=== PATIENT | female | born 1975 | race Caucasian/White ===

== ENCOUNTER → 2016-09-02 | Outpatient (CLI) | payer MEDICAID ==
--- NOTE | 2016-09-02 08:51 | WWHP ---
DATE OF SERVICE: 09/02/2016 CHIEF COMPLAINT: The patient is here for her routine gynecologic exam and mammogram. HPI: This is a 40-year-old, G3, P3 with an LMP of 08/13/2016. The patient's is status post vasectomy. She is without gynecologic complaints. Past medical history is unremarkable. MEDICATIONS: None. ALLERGIES: No known drug allergies. 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 SOCIAL HISTORY: She denies tobacco and drug use and has 4 to 5 alcoholic drinks per month. 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 REVIEW OF SYSTEMS: Weight has been stable. She denies respiratory, cardiac, or GI problems. PHYSICAL EXAM: Blood pressure 122/89. Height 5 feet 3 inches. Weight 136 pounds. Temperature 98.2, pulse 98. This is a well-developed, well-nourished white female who is alert and oriented x3 in no acute distress. HEENT is within normal limits. NECK: Supple without mass or thyromegaly. CHEST AND LUNGS: Clear to auscultation. HEART: Regular rate and rhythm. Breasts are without mass or discharge. Axillary exam is negative for adenopathy. BACK: Negative for CVA tenderness. ABDOMEN: Soft, nontender, without palpable masses. PELVIC EXAM: Normal external genitalia. Cervix and vagina appear normal. There is no evidence of prolapse. The uterus is mid to anterior, nongravid size and nontender. There are no palpable adnexal masses or tenderness. Rectal exam is negative for mass or tenderness and is negative for occult blood. EXTREMITIES: Nontender. IMPRESSION: A gynecologically healthy 40-year-old female, whose is status post vasectomy. PLAN: 1. Pap smear was performed. 2. Self breast examination was discussed. 3. Mammogram will be done today. 4. Osteoporosis prevention was discussed. 5. She will return in one year.
--- NOTE | 2016-09-03 08:09 | MM ---
Reason for exam: screening (asymptomatic). Last mammogram was performed 1 year ago. Physical Findings: A clinical breast exam by your physician is recommended on an annual basis and results should be correlated with mammographic findings. MG 3D Screening Mammo W/Cad Bilateral CC and MLO view(s) were taken. Prior study comparison: August 27, 2015, bilateral MG 3d diag mammo w/cad RADHA. November 27, 2014, bilateral MG diagnostic mammo w CAD RADHA. May 23, 2014, bilateral MG work up mamm w CAD BILAT. The breast tissue is heterogeneously dense. This may lower the sensitivity of mammography. Finding: There are typically benign round calcifications in both breasts. Asymmetric breast tissue in the left posterior position, stable. There is no discrete abnormality. ASSESSMENT: Benign, BI-RAD 2 RECOMMENDATION: Routine screening mammogram of both breasts in 1 year.
== END ==
LOC: WWCWWP 07:55
PROVIDERS: ATTEND Obstetrics & Gynecology
DX: Z12.31 Encounter for screening mammogram for malignant neoplasm of breast (principal)
CPT/HCPCS: 77063; G0202

== ENCOUNTER → 2016-11-13 | Outpatient (CLI) | payer MEDICAID ==
--- NOTE | 2016-11-13 15:07 | XR ---
EXAMINATION TYPE: XR thoracic spine 2V DATE OF EXAM: 11/13/2016 COMPARISON: NONE HISTORY: Upper back pain Alignment is anatomic. There is no compression deformities. Vertebral body height and disc interspa anival are maintained. Slight curvature of the spine. Hypertrophic spur near the cervical thoracic junct ion. IMPRESSION: 1. No acute abnormality. Slight curvature of the spine. If symptoms persist consider MRI.
== END ==
LOC: RADXRMAIN 14:52
PROVIDERS: ATTEND Family Medicine
DX: M43.9 Deforming dorsopathy, unspecified (principal)
CPT/HCPCS: 72070

== ENCOUNTER → 2017-10-20 | Outpatient (CLI) | payer BC ==
[2017-10-20 08:03] VITALS: BP 120/88; PULSE 79; RESP 12; TEMP 98.1; BMI 23.7
--- NOTE | 2017-10-20 08:35 | P.HPOB ---
History of Present Illness H&P Date: 10/20/17 Chief Complaint: The patient is here for her routine gynecologic exam and mammogram. This is a 42-year-old G3 PIII with an LMP of 09/30/2017. Her status post vasectomy. The patient is without gynecologic complaints. Menses are regular every month. Review of Systems Weight has been stable. She denies respiratory, cardiac, or G.I. problems. 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 She has had 3 vaginal deliveries. 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 - Past Family History Father Family Medical History: Cancer (Prostate and renal) Medications and Allergies Home Medications Medication Instructions Recorded Confirmed Type No Known Home Medications [No 10/20/17 10/20/17 History Known Home Medications] Allergies Allergy/AdvReac Type Severity Reaction Status Date / Time No Known Allergies Allergy Verified 05/23/14 08:44 Exam - Vital Signs Vital signs: Vital Signs Temp Pulse Resp BP 10/20/17 07:55 98.1 F 79 12 120/88 Intake and Output 10/19/17 10/20/17 10/20/17 22:59 06:59 14:59 Other: Weight 60.781 kg Height 5'3", BMI 23.7. This is a well-developed well-nourished white female who is alert and oriented times 3 in no acute distress. HEENT: Within normal limits. NECK: Supple without mass or thyromegaly. CHEST AND LUNGS: Clear to auscultation. HEART: Regular rate and rhythm. BREASTS: Are without mass or discharge. AXILLARY EXAM: Negative for adenopathy. BACK: Negative for CVA tenderness. ABDOMEN: Soft, nontender, without palpable masses. PELVIC EXAM: Normal external genitalia. Cervix and vagina appear normal. There is no unusual discharge. There is no evidence of prolapse. The uterus is midposition, nongravid size and nontender. There are no palpable adnexal masses or tenderness. RECTAL EXAM: negative for mass or tenderness and is negative for occult blood. EXTREMITIES: Nontender. IMPRESSION: 1. 42-year-old female with normal gynecologic exam whose is status post vasectomy. PLAN: 1. Pap smear was deferred since she had a normal one last year. 2. Self breast awareness was discussed. 3. Screening mammogram will be done today. 4. Osteoporosis prevention was discussed. 5. She will return in one year.
--- NOTE | 2017-10-21 10:31 | MM ---
Reason for exam: screening (asymptomatic). Last mammogram was performed 1 year and 2 months ago. Physical Findings: A clinical breast exam by your physician is recommended on an annual basis and results should be correlated with mammographic findings. MG 3D Screening Mammo W/Cad Bilateral CC and MLO view(s) were taken. XCCL view(s) were taken of the right breast. Prior study comparison: September 02, 2016, bilateral MG 3d screening mammo w/cad. August 27, 2015, bilateral MG 3d diag mammo w/cad RADHA. The breast tissue is extremely dense which could obscure a lesion on mammography. Finding: There is a 7 mm equal density (isodense), irregular mass in the lower quadrant, posterior position of the right breast. ASSESSMENT: Incomplete: need additional imaging evaluation, BI-RAD 0 RECOMMENDATION: Special view mammogram of the right breast. If lesion persists on supplemental views, image directed ultrasound is recommended. [facility] will attempt to contact patient to return for supplemental views and ultrasound if indicated.
== END | disposition home or self-care (01) ==
LOC: WWCWWP 07:50
PROVIDERS: ATTEND Obstetrics & Gynecology
DX: Z12.31 Encounter for screening mammogram for malignant neoplasm of breast (principal)
CPT/HCPCS: 77063; 77067

== ENCOUNTER → 2017-11-01 | Outpatient (CLI) | payer BC ==
--- NOTE | 2017-11-01 08:48 | MM ---
Reason for exam: additional evaluation requested from abnormal screening. Last mammogram was performed less than 1 month ago. Physical Findings: Nurse did not find any significant physical abnormalities on exam. MG 3D Work Up W/Cad RT CC and MLO view(s) were taken of the right breast. Prior study comparison: October 20, 2017, bilateral MG 3d screening mammo w/cad. September 02, 2016, bilateral MG 3d screening mammo w/cad. There is no discrete abnormality. These results were verbally communicated with the patient and result sheet given to the patient on 11/01/17. ASSESSMENT: Incomplete: need additional imaging evaluation, BI-RAD 0 RECOMMENDATION: Ultrasound of the right breast.
--- NOTE | 2017-11-01 08:49 | USB ---
Reason for exam: additional evaluation requested from abnormal screening. US Breast Workup Limited RT Right limited breast ultrasound including focal area of concern, retroareolar and axilla demonstrates a 0.5 x 0.6 x 0.2cm oval, cystic lesion at 9 o'clock and a 0.5 x 0.4 x 0.2cm oval, cystic lesion at 10 o'clock. These results were verbally communicated with the patient and result sheet given to the patient on 11/01/17. ASSESSMENT: Benign, BI-RAD 2 RECOMMENDATION: Return to routine screening mammogram schedule for both breasts.
== END | disposition home or self-care (01) ==
LOC: RADMAMWWP 07:29
PROVIDERS: ATTEND Obstetrics & Gynecology
DX: R92.8 Other abnormal and inconclusive findings on diagnostic imaging of breast (principal)
CPT/HCPCS: 77061; 77065

== ENCOUNTER 2018-11-19 22:26 | Emergency (ER) | payer BC ==
[2018-11-19 22:50] VITALS: RESP 18
[2018-11-20] MEDS ORDERED: TOPICAL SKIN ADHESIVE 1 EACH AMP TOPICAL ONE (00:13)
--- NOTE | 2018-11-20 00:19 | ED ---
Head Injury HPI - General Chief complaint: Head Injury Stated complaint: Head injury Time Seen by Provider: 11/20/18 00:07 Source: patient Mode of arrival: ambulatory Limitations: no limitations - History of Present Illness Initial comments: 's patient is a 43-year-old woman who presents with complaint of scalp laceration. She states that she had been noticed work around the home and a landscaping brick had fallen short distance onto her head. She did not have loss of consciousness. She denies significant headache. There is some dull localized pain. She denies any neurologic symptoms. The patient states she was not concerned about the head injury but only that the small laceration to her scalp continued to bleed. She denies any other injury. No neck or back pain. No neurologic symptoms. She believes that her last tetanus shot was given between 2 and 3 years ago. Complaint: head injury -: hour(s) Location: parietal Loss of Consciousness: no Previous Trauma to this Area: No Place: home Severity: mild Quality: dull Consistency: constant Provoking factors: none known Other Injuries: laceration - Related Data Home Medications Medication Instructions Recorded Confirmed No Known Home Medications 10/20/17 10/20/17 Allergies/Adverse reactions: Allergies Allergy/AdvReac Type Severity Reaction Status Date / Time No Known Allergies Allergy Verified 11/19/18 22:50 Review of Systems ROS Statement: Those systems with pertinent positive or pertinent negative responses have been documented in the HPI. ROS Other: All systems not noted in ROS Statement are negative. Constitutional: Denies: fever, chills, weakness Eyes: Denies: eye pain, vision change ENT: Denies: ear pain, hearing loss, epistaxis Respiratory: Denies: cough, dyspnea Cardiovascular: Denies: syncope Gastrointestinal: Denies: abdominal pain, nausea, vomiting Skin: Reports: as per HPI (Laceration) Hematological/Lymphatic: Denies: easy bleeding Past Medical History Past Medical History: No Reported History Additional Past Medical History / Comment(s): She has had 3 vaginal deliveries. History of Any Multi-Drug Resistant Organisms: None Reported Past Surgical History: Orthopedic Surgery Additional Past Surgical History / Comment(s): Laparoscopic ovarian cystectomy 2003, colonoscopy 2011, Past Psychological History: No Psychological Hx Reported Smoking Status: Never smoker Past Alcohol Use History: Occasional Past Drug Use History: None Reported - Past Family History Father Family Medical History: Cancer (Prostate and renal) General Exam Limitations: no limitations General appearance: alert, in no apparent distress Head exam: Present: normocephalic, other (Parietal scalp laceration without significant swelling. There is no bony tenderness or deformity.) Eye exam: Present: normal appearance. Absent: scleral icterus, conjunctival injection Neck exam: Present: normal inspection, full ROM. Absent: tenderness Neurological exam: Present: alert, oriented X3, CN II-XII intact, normal gait Skin exam: Present: warm, dry, normal color, other (There is an approximately 3 cm laceration to the scalp.) Course Vital Signs 11/19/18 22:46 Temperature 97.9 F Pulse Rate 75 Respiratory 18 Rate Blood Pressure 134/66 O2 Sat by Pulse 100 Oximetry Procedures - Laceration Laceration #1 Consent Obtained: verbal consent Indication: laceration Site: scalp Description: linear Patient Tolerated Procedure: well, no complications Additional Comments: Wound closure with skin glue. Patient tolerated procedure well. Disposition Clinical Impression: Scalp laceration, Head injury Disposition: HOME SELF-CARE Condition: Good Instructions (If sedation given, give patient instructions): Laceration (ED), Head Injury (ED) Is patient prescribed a controlled substance at d/c from ED?: No Referrals: Varsha Espino MD [Primary Care Provider] - 1-2 days
[2018-11-20 01:09] VITALS: BP 124/83; PULSE 60; TEMP 98.1
== END 2018-11-20 01:09 | disposition home or self-care (01) ==
LOC: EC 22:26
DX: S01.01XA Laceration without foreign body of scalp, initial encounter (principal); W20.8XXA Other cause of strike by thrown, projected or falling object, initial encounter; Y93.H2 Activity, gardening and landscaping
CPT/HCPCS: 12002; 99282

== ENCOUNTER → 2018-12-06 | Outpatient (CLI) | payer BC ==
[2018-12-06 09:52] VITALS: BP 126/74; PULSE 84; RESP 16; TEMP 97.7; BMI 22.3
--- NOTE | 2018-12-06 10:41 | P.HPOB ---
History of Present Illness H&P Date: 12/06/18 Chief Complaint: The patient is here for her routine gynecologic exam and ma mmogram. This is a 43-year-old G3 PIII with an LMP of 11/07/2018. Her is status post vasectomy. She states her menstrual periods have gotten heavier. Menstrual periods are still fairly regularly every month but are now lasting about 7 days with 3 days of heavier flow. On the heavy days she has to change her protection about every hour. Occasionally she has had to use double protection because of the heavy flow. She is otherwise without complaints. Review of Systems She has lost about 7 pounds over the last year. She denies respiratory, cardiac, or G.I. problems. 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 She has had 3 vaginal deliveries. 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 - Past Family History Father Family Medical History: Cancer Additional Family Medical History / Comment(s): Prostate and renal cancer. Medications and Allergies Home Medications Medication Instructions Recorded Confirmed Type Loratadine [Claritin] 10 mg PO DAILY 12/06/18 12/06/18 History Multivitamin [Multivitamins Adult 1 each PO 12/06/18 History Gummies] Allergies Allergy/AdvReac Type Severity Reaction Status Date / Time No Known Allergies Allergy Verified 11/19/18 22:50 Exam Vital Signs Temp Pulse Resp BP Pulse Ox 12/06/18 09:47 97.7 F 84 16 126/74 100 Intake and Output 12/05/18 12/06/18 12/06/18 22:59 06:59 14:59 Other: Weight 57.153 kg Height 5'3", weight 126 pounds, BMI 22.3. This is a well-developed well-nourished white female who is alert and oriented times 3 in no acute distress. HEENT: Within normal limits. NECK: Supple without mass or thyromegaly. CHEST AND LUNGS: Clear to auscultation. HEART: Regular rate and rhythm. BREASTS: Are without mass or discharge. AXILLARY EXAM: Negative for adenopathy. BACK: Negative for CVA tenderness. ABDOMEN: Soft, nontender, without palpable masses. PELVIC EXAM: Normal external genitalia. Cervix and vagina appear normal. There is no unusual discharge. There is no evidence of prolapse. The uterus is midposition, nongravid size and nontender. There are no palpable adnexal masses or tenderness. RECTAL EXAM: negative for mass or tenderness and is negative for occult blood. EXTREMITIES: Nontender. IMPRESSION: 1. 43 year old female whose is status post vasectomy, with normal gynecologic exam. 2. Mild hypermenorrhea with no significant physical findings at this time. PLAN: 1. Pap smear was performed. 2. Self breast awareness was discussed with the patient. 3. Screening mammogram will be done today. 4. We had a long discussion regarding options for her heavier menstrual flow. We will have a trial of meclofenamate sodium 100 mg PO TID PRN for heavy menstrual flow up to 6 days per cycle. The prescription will be sent electronically to [facility] pharmacy in [place]. 5. She will keep a menstrual calendar. If her menstrual flow is worsening or not improving, she was instructed to make a follow-up appointment and we can consider referral for endometrial ablation. 6.She was advised to return in one year for her annual well woman exam and PRN.
--- NOTE | 2018-12-06 12:09 | MM ---
Reason for exam: screening (asymptomatic). Last mammogram was performed 1 year and 1 month ago. Physical Findings: A clinical breast exam by your physician is recommended on an annual basis and results should be correlated with mammographic findings. MG 3D Screening Mammo W/Cad Bilateral CC and MLO view(s) were taken. Prior study comparison: November 01, 2017, right breast MG 3d work up w/cad RT. October 20, 2017, bilateral MG 3d screening mammo w/cad. September 02, 2016, bilateral MG 3d screening mammo w/cad. The breast tissue is heterogeneously dense. This may lower the sensitivity of mammography. There are benign appearing regional, round calcifications in the right breast. Asymmetric breast tissue left posterior breast, stable. There is no discrete abnormality. ASSESSMENT: Benign, BI-RAD 2 RECOMMENDATION: Routine screening mammogram of both breasts in 1 year.
== END | disposition home or self-care (01) ==
LOC: WWCWWP 09:09
PROVIDERS: ATTEND Obstetrics & Gynecology
DX: Z12.31 Encounter for screening mammogram for malignant neoplasm of breast (principal)
CPT/HCPCS: 77063; 77067

== ENCOUNTER → 2020-02-14 | Outpatient (CLI) | payer BC ==
[2020-02-14 10:51] VITALS: BP 133/84; PULSE 93; RESP 16; TEMP 98.2
--- NOTE | 2020-02-14 11:23 | P.HPOB ---
History of Present Illness H&P Date: 02/14/20 Chief Complaint: The patient is here for her routine gynecologic exam and ma mmogram. This is a 44-year-old with an LMP of 12/24/2019. The patient's is status post vasectomy. She states she only briefly tried meclofenamate sodium for hypermenorrhea and felt that she didn't need it. Menstrual periods have been lasting about 5-6 days with 3 days of heavier flow where she has to change her protection about every 1 1/2-2 hours. After the 3 days, then periods tend to be light. She has been keeping track of her menstrual periods on a menstrual tawanna on her phone. She thinks she missed about 3 menstrual periods over the last year including this month. She denies any significant hot flashes except for a few in May 2019. She is otherwise without complaints. Review of Systems The patient has gained 7 pounds over the last year. She denies respiratory, cardiac, or G.I. problems. 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 She has had 3 vaginal deliveries. 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 - Past Family History Father Family Medical History: Cancer Additional Family Medical History / Comment(s): Prostate and renal cancer. Medications and Allergies Home Medications Medication Instructions Recorded Confirmed Type Multivitamin [Multivitamins Adult 1 each PO HS 12/06/18 02/14/20 History Gummies] Allergies Allergy/AdvReac Type Severity Reaction Status Date / Time No Known Allergies Allergy Verified 02/14/20 10:45 Exam Vital Signs Temp Pulse Resp BP Pulse Ox 02/14/20 10:46 98.2 F 93 16 133/84 100 Intake and Output 02/13/20 02/14/20 02/14/20 22:59 06:59 14:59 Other: Weight 60.328 kg Height 5 feet 2 inches, weight 133 pounds, BMI 24.3. This is a well-developed well-nourished white female who is alert and oriented times 3 in no acute distress. HEENT: Within normal limits. NECK: Supple without mass or thyromegaly. CHEST AND LUNGS: Clear to auscultation. HEART: Regular rate and rhythm. BREASTS: Are without mass or discharge. AXILLARY EXAM: Negative for adenopathy. BACK: Negative for CVA tenderness. ABDOMEN: Soft, nontender, without palpable masses. PELVIC EXAM: Normal external genitalia. Cervix and vagina appear normal. There is no unusual discharge. There is no evidence of prolapse. The uterus is midposition, nongravid size and nontender. There are no palpable adnexal masses or tenderness. RECTAL EXAM: negative for mass or tenderness and is negative for occult blood. EXTREMITIES: Nontender. IMPRESSION: 1. 44-year-old female with normal gynecologic exam whose is status post vasectomy. 2. Possible early perimenopause with occasional missed menstrual periods. 3. Mild hypermenorrhea with no significant physical findings and the patient is declining any medication or treatment for this at this time. PLAN: 1. Pap smear was deferred since she had a normal one on 12/06/2018. 2. Self breast awareness was discussed with the patient. 3. Screening mammogram will be done today. 4. We have discussed options for her mild hypermenorrhea including medication treatment as well as endometrial ablation. She will keep a menstrual calendar and call if she thinks she would like to proceed with treatment for hypermenorrhea. She will also call if she is having other menstrual problems. 5. She was advised to return in one year for her annual well woman exam and as needed.
--- NOTE | 2020-02-16 10:16 | MM ---
Reason for exam: screening (asymptomatic). Last mammogram was performed 1 year and 2 months ago. Physical Findings: A clinical breast exam by your physician is recommended on an annual basis and results should be correlated with mammographic findings. MG 3D Screening Mammo W/Cad Bilateral CC and MLO view(s) were taken. Prior study comparison: December 06, 2018, bilateral MG 3d screening mammo w/cad. November 01, 2017, right breast MG 3d work up w/cad RT. The breast tissue is heterogeneously dense. This may lower the sensitivity of mammography. Stable areas of bilateral asymmetric densities. No significant changes when compared with prior studies. ASSESSMENT: Benign, BI-RAD 2 RECOMMENDATION: Routine screening mammogram of both breasts in 1 year.
== END | disposition home or self-care (01) ==
LOC: WWCWWP 10:34
PROVIDERS: ATTEND Obstetrics & Gynecology
DX: Z12.31 Encounter for screening mammogram for malignant neoplasm of breast (principal)
CPT/HCPCS: 77063; 77067

== ENCOUNTER → 2020-12-16 | Outpatient (CLI) | payer BC ==
--- NOTE | 2020-12-17 03:59 | MR ---
EXAMINATION TYPE: MR foot RT wo/w con DATE OF EXAM: 12/16/2020 COMPARISON: None HISTORY: Right foot pain, bone lesion. Prior bunion surgery. CONTRAST: Standard multiplanar, multisequence MRI departmental protocol utilizing 6.5 mL intravenous Gadavist g adolinium contrast. Multiplanar multiecho imaging of the right foot was performed without contrast and with IV contrast. The metatarsals are intact. There is a mild hallux valgus. There is minor spurring at the first MP judith int. The toes appear intact. The tarsal bones appear intact. I see no focal bone destruction. The kota ntar fascia appears normal. Achilles tendon is intact. The medial and lateral flexor tendons of the f oot appear intact. There is a marker placed on the plantar aspect of the forefoot at the second MP judith int. There is on the T1 images low signal in the cutaneous tissues in the area of concern. This has s light increased signal on the STIR images. This measures 15 x 6 mm. IMPRESSION: Cutaneous abnormality at the plantar aspect of the second MP joint in the area of concern. This could be a bunion or Hanks neuroma. 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 No fracture seen. No si gn of inflammatory arthritis.
== END | disposition home or self-care (01) ==
LOC: RADMRIMAIN 20:19
PROVIDERS: ATTEND Podiatrist Foot & Ankle Surgery
DX: M20.11 Hallux valgus (acquired), right foot (principal)
CPT/HCPCS: 73720; A9585

== ENCOUNTER → 2021-03-11 | Outpatient (CLI) | payer BC ==
[2021-03-11 10:53] VITALS: BP 126/72; PULSE 74; RESP 12; TEMP 98.3
--- NOTE | 2021-03-11 11:30 | P.HPOB ---
History of Present Illness H&P Date: 03/11/21 Chief Complaint: The patient is here for her routine gynecologic exam and ma mmogram. This is a 45-year-old with an LMP of 02/07/2021. The patient's is status post vasectomy. Menstrual periods have been mostly about every 4-5 weeks lasting 6 or 7 days. She did go for more than 5 months between about May 2020 and October 2020 without a menstrual period. Her last 3 have been fairly normal. She has not been having much problem with very heavy flow. She denies any significant hot flashes. Review of Systems The patient has gained 6 pounds over the last year. She denies respiratory, cardiac, or G.I. problems. 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 She has had 3 vaginal deliveries. 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 - Past Family History Father Family Medical History: Cancer Additional Family Medical History / Comment(s): Prostate and renal cancer. Medications and Allergies Home Medications Medication Instructions Recorded Confirmed Type Multivitamin [Multivitamins Adult 1 each PO HS 12/06/18 03/11/21 History Gummies] Allergies Allergy/AdvReac Type Severity Reaction Status Date / Time No Known Allergies Allergy Verified 02/14/20 10:45 Exam Vital Signs Temp Pulse Resp BP Pulse Ox 03/11/21 10:43 98.3 F 74 12 126/72 98 Intake and Output 03/10/21 03/11/21 03/11/21 22:59 06:59 14:59 Other: Weight 63.049 kg Height 5 feet 3 inches, weight 139 pounds, BMI 24.6. This is a well-developed well-nourished white female who is alert and oriented times 3 in no acute distress. HEENT: Within normal limits. NECK: Supple without mass or thyromegaly. CHEST AND LUNGS: Clear to auscultation. HEART: Regular rate and rhythm. BREASTS: Are without mass or discharge. AXILLARY EXAM: Negative for adenopathy. BACK: Negative for CVA tenderness. ABDOMEN: Soft, nontender, without palpable masses. PELVIC EXAM: Normal external genitalia. Cervix and vagina appear normal. There is no unusual discharge. There is no evidence of prolapse. The uterus is midposition, nongravid size and nontender. There are no palpable adnexal masses or tenderness. RECTAL EXAM: negative for mass or tenderness and is negative for occult blood. EXTREMITIES: Nontender. IMPRESSION: 1. 45-year-old female whose is status post vasectomy, with normal gynecologic exam. 2. Some menstrual irregularity with Intermittent oligomenorrhea, possible perimenopause. PLAN: 1. Pap smear cotest was performed. 2. Self breast awareness was discussed with the patient. We have also discussed symptoms associated with inflammatory breast cancer. 3. Screening mammogram will be done today. 4. Osteoporosis prevention was discussed. I have stressed the importance of adequate calcium, vitamin D and regular exercise. Recommended amounts of calcium and vitamin D were also discussed. 5. She will continue to keep a menstrual calendar and call if menstrual problems. 6. She was advised to return in one year for her annual well woman exam.
--- NOTE | 2021-03-11 13:42 | MM ---
Reason for exam: screening (asymptomatic). Last mammogram was performed 1 year and 1 month ago. Physical Findings: A clinical breast exam by your physician is recommended on an annual basis and results should be correlated with mammographic findings. MG 3D Screening Mammo W/Cad Bilateral CC and MLO view(s) were taken. XCCL view(s) were taken of the right breast. XCCM view(s) were taken of the left breast. Prior study comparison: February 14, 2020, bilateral MG 3d screening mammo w/cad. December 06, 2018, bilateral MG 3d screening mammo w/cad. November 01, 2017, right breast MG 3d work up w/cad RT. The breast tissue is heterogeneously dense. This may lower the sensitivity of mammography. There are benign appearing round calcifications bilaterally. Asymmetric breast tissue left posterior aspect, stable. There is no discrete abnormality. ASSESSMENT: Benign, BI-RAD 2 RECOMMENDATION: Routine screening mammogram of both breasts in 1 year.
== END ==
LOC: WWCWWP 10:31
PROVIDERS: ATTEND Obstetrics & Gynecology
DX: Z12.31 Encounter for screening mammogram for malignant neoplasm of breast (principal); Z01.419 Encounter for gynecological examination (general) (routine) without abnormal findings; N91.5 Oligomenorrhea, unspecified; N92.6 Irregular menstruation, unspecified; F41.9 Anxiety disorder, unspecified
CPT/HCPCS: 77063; 77067

== ENCOUNTER → 2022-03-25 | Outpatient (CLI) | payer BC ==
[2022-03-25 09:38] VITALS: BP 122/86; PULSE 88; RESP 18; TEMP 97.8
--- NOTE | 2022-03-25 10:11 | P.HPOB ---
History of Present Illness H&P Date: 03/25/22 Chief Complaint: The patient is here for her routine gynecologic exam and ma mmogram. This is a 46-year-old with an LMP of 02/22/2022. Her is status post vasectomy. Menstrual periods continue to be somewhat irregular with cycles ranging from 3 weeks to 5 months. Over the past year she has had cycles of: 21 days, 40 days, 20 days, 153 days, 45 days, and 115 days. She also has been noticing some hot flashes. She takes an [id number] supplement called Provitalize which seems to help somewhat with her hot flashes. She states her menstrual periods are not bad. Review of Systems The patient has gained 9 pounds over the last year. She denies respiratory, cardiac, or G.I. problems. 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 She has had 3 vaginal deliveries. 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 - Past Family History Father Family Medical History: Cancer Additional Family Medical History / Comment(s): Prostate and renal cancer. Medications and Allergies Home Medications Medication Instructions Recorded Confirmed Type Multivitamin [Multivitamins Adult 1 each PO HS 12/06/18 03/25/22 History Gummies] L.acidoph,Paracasei, B.lactis 1 cap PO DAILY 03/25/22 03/25/22 History [Probiotic] Allergies Allergy/AdvReac Type Severity Reaction Status Date / Time No Known Allergies Allergy Verified 03/25/22 09:31 Exam Vital Signs Temp Pulse Resp BP Pulse Ox 03/25/22 09:32 97.8 F 88 18 122/86 100 Intake and Output 03/24/22 03/25/22 03/25/22 22:59 06:59 14:59 Other: Weight 67.132 kg Height 5 feet 3 inches, weight 148 pounds, BMI 26.2. This is a well-developed well-nourished white female who is alert and oriented times 3 in no acute distress. HEENT: Within normal limits. NECK: Supple without mass or thyromegaly. CHEST AND LUNGS: Clear to auscultation. HEART: Regular rate and rhythm. BREASTS: Are without mass or discharge. AXILLARY EXAM: Negative for adenopathy. BACK: Negative for CVA tenderness. ABDOMEN: Soft, nontender, without palpable masses. PELVIC EXAM: Normal external genitalia. Cervix and vagina appear normal. There is no unusual discharge. There is no evidence of prolapse. The uterus is midposition, nongravid size and nontender. There are no palpable adnexal masses or tenderness. RECTAL EXAM: negative for mass or tenderness and is negative for occult blood. EXTREMITIES: Nontender. IMPRESSION: 1. 46-year-old premenopausal female with normal gynecologic exam. 2. Menstrual irregularity consistent with the perimenopause with mild vasomotor symptoms. PLAN: 1. Pap smear was deferred since she had a negative Pap smear, test on 03/11/2021. 2. Self breast awareness was discussed with the patient. We have also discussed symptoms associated with inflammatory breast cancer. 3. Screening mammogram will be done today. 4. The patient will continue to keep a menstrual calendar and call if menstrual problems. Suggestions regarding her hot flashes were given. 5. Colorectal cancer screening was discussed. She will discuss the options with her PCP. 6. She has completed her Covid vaccination series, but has not received any boosters. She is aware that boosters are now available. She will consider this. 7. She was advised to return in one year for her annual well woman exam and as needed.
--- NOTE | 2022-03-26 11:36 | MM ---
Reason for Exam: Screening (asymptomatic). Last mammogram was performed 1 year(s) and 1 month(s) ago. Patient History: Menarche at age 12. First Full-Term at age 22. Patient has history of breast feeding. Last menstrual period: 02/22/2022 Risk Values: Lucinda 5 year model risk: 0.8%. NCI Lifetime model risk: 8.4%. Prior Study Comparison: 09/02/2016 Bilateral Screening Mammogram, [facility]. 10/20/2017 Bilateral Screening Mammogram, [facility]. 11/01/2017 Right Diagnostic Mammogram, [facility]. 12/06/2018 Bilateral Screening Mammogram, [facility]. 02/14/2020 Bilateral Screening Mammogram, [facility]. 03/11/2021 Bilateral Screening Mammogram, [facility]. Tissue Density: The breast tissue is heterogeneously dense. This may lower the sensitivity of mammography. Findings: Analyzed By CAD. Scattered and loosely grouped small benign appearing round calcifications bilaterally are redemonstrated. There is no suspicious new group of microcalcifications or new suspicious mass in either breast. Overall Assessment: Benign, BI-RAD 2 Management: Screening Mammogram of both breasts in 1 year. A clinical breast exam by your physician is recommended on an annual basis and results should be correlated with mammographic findings. Electronically signed and approved by: Angel Penaloza M.D.
== END ==
LOC: WWCWWP 09:09
PROVIDERS: ATTEND Obstetrics & Gynecology
DX: Z12.31 Encounter for screening mammogram for malignant neoplasm of breast (principal); E66.9 Obesity, unspecified; Z68.26 Body mass index [BMI] 26.0-26.9, adult
CPT/HCPCS: 77063; 77067

== ENCOUNTER → 2023-04-07 | Outpatient (CLI) | payer BC ==
[2023-04-07 08:14] VITALS: BP 121/82; PULSE 79; RESP 17; TEMP 97.9
--- NOTE | 2023-04-07 08:35 | P.HPOB ---
History of Present Illness H&P Date: 04/07/23 Chief Complaint: The patient is here for her routine gynecologic exam and ma mmogram. This is a 47-year-old with an LMP of 03/31/2023. The patient's is status post vasectomy. Patient continues to have irregular cycles ranging from 5 weeks to 5 months. Most menstrual periods have not been very heavy or painful. Her LMP was different in that she had 3 days of heavier flow and it was very crampy during those days. During the heavy days of her LMP, she had to change her protection up to every 45 minutes. She has had occasional hot flashes which are not very consistent. She is otherwise without gynecologic complaints. Review of Systems The patient's weight has been stable over the last year. She denies respiratory, cardiac, or G.I. problems. 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 She has had 3 vaginal deliveries. 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 - Past Family History Father Family Medical History: Cancer Additional Family Medical History / Comment(s): Prostate and renal cancer. Medications and Allergies Home Medications Medication Instructions Recorded Confirmed Type Multivitamin [Multivitamins Adult 1 each PO HS 12/06/18 04/07/23 History Gummies] Allergies Allergy/AdvReac Type Severity Reaction Status Date / Time No Known Allergies Allergy Verified 04/07/23 07:55 Exam Vital Signs Temp Pulse Resp BP Pulse Ox 04/07/23 07:56 97.9 F 79 17 121/82 99 Intake and Output 04/06/23 04/07/23 04/07/23 22:59 06:59 14:59 Other: Weight 67.132 kg Height 5 feet 3 inches, weight 148 pounds, BMI 26.2. This is a well-developed well-nourished white female who is alert and oriented times 3 in no acute distress. HEENT: Within normal limits. NECK: Supple without mass or thyromegaly. CHEST AND LUNGS: Clear to auscultation. HEART: Regular rate and rhythm. BREASTS: Are without mass or discharge. AXILLARY EXAM: Negative for adenopathy. BACK: Negative for CVA tenderness. ABDOMEN: Soft, nontender, without palpable masses. PELVIC EXAM: Normal external genitalia. Cervix and vagina appear normal. There is a small amount of old menstrual blood near the cervix consistent with her LMP. There is no unusual discharge. There is no evidence of prolapse. The uterus is midposition, nongravid size and nontender. There are no palpable adnexal masses or tenderness. RECTAL EXAM: negative for mass or tenderness and is negative for occult blood. EXTREMITIES: Nontender. IMPRESSION: 1. 47-year-old perimenopausal female whose is status post vasectomy, with normal gynecologic exam. 2. Irregular oligomenorrhea and intermittent vasomotor symptoms consistent with perimenopause. 3. Mild hypermenorrhea and dysmenorrhea with her LMP. She states her other menstrual periods have not been bad. PLAN: 1. Pap smear cotest was performed. 2. Self breast awareness was discussed with the patient. We have also discussed symptoms associated with inflammatory breast cancer. 3. Screening mammogram will be done today. 4. The patient will continue to keep a menstrual calendar on her phone. She will call if menstrual problems. 5. She can try [id number] ibuprofen or Aleve for her menstrual periods as needed. 6.Osteoporosis prevention was discussed. I have stressed the importance of adequate calcium, vitamin D and regular exercise. Recommended amounts of calcium and vitamin D were also discussed. 7. She states she plans to schedule a colonoscopy through her PCP since it is been about 11 years since her last one. 8. She was advised to return in one year for her annual well woman exam and as needed.
--- NOTE | 2023-04-08 11:08 | MM ---
Reason for Exam: Screening (asymptomatic). Last screening mammogram was performed 12 month(s) ago. Patient History: Menarche at age 12. First Full-Term at age 22. Patient has history of breast feeding. Last menstrual period: 03/31/2023 Risk Values: Lucinda 5 year model risk: 0.8%. NCI Lifetime model risk: 8.3%. Prior Study Comparison: 09/02/2016 Bilateral Screening Mammogram, [facility]. 10/20/2017 Bilateral Screening Mammogram, [facility]. 12/06/2018 Bilateral Screening Mammogram, [facility]. 02/14/2020 Bilateral Screening Mammogram, [facility]. 03/11/2021 Bilateral Screening Mammogram, [facility]. 03/25/2022 Bilateral MG 3D screening mammo w/cad, [facility]. Tissue Density: The breast tissue is heterogeneously dense. This may lower the sensitivity of mammography. Findings: Analyzed By CAD. There is no suspicious group of microcalcifications or new suspicious mass. Overall Assessment: Negative, BI-RAD 1 Management: Screening Mammogram of both breasts in [address] [facility] will attempt to contact patient to return for supplemental views and ultrasound if indicated. Patient should continue monthly self-breast exams. A clinical breast exam by your physician is recommended on an annual basis. This exam should not preclude additional follow-up of suspicious palpable abnormalities. Note on Lucinda scores and lifetime risk: 1. A Lucinda score greater than 3% is considered moderate risk. If this is the case, consider specialist referral to assess eligibility for a risk reducing agent. 2. If overall lifetime risk for the development of breast cancer is 20% or higher, the patient may qualify for future screening with alternating mammogram and breast MRI. Electronically signed and approved by: James Gustafson DO
== END ==
LOC: WWCWWP 07:48
PROVIDERS: ATTEND Obstetrics & Gynecology
DX: Z12.31 Encounter for screening mammogram for malignant neoplasm of breast (principal); N91.5 Oligomenorrhea, unspecified; N92.0 Excessive and frequent menstruation with regular cycle; N94.6 Dysmenorrhea, unspecified; Z78.0 Asymptomatic menopausal state
CPT/HCPCS: 77063; 77067

== ENCOUNTER → 2024-04-11 | Outpatient (CLI) | payer BC ==
[2024-04-11 08:05] VITALS: BP 136/86; PULSE 83; RESP 16; TEMP 98.3
--- NOTE | 2024-04-11 08:30 | P.HPOB ---
History of Present Illness H&P Date: 04/11/24 Chief Complaint: The patient is here for her routine gynecologic exam and ma mmogram. This is a 48-year-old G3, P3 with an LMP of 07/19/2023. The patient's is status post vasectomy. Menses continue to space out. She had 3 menstrual periods in 2022, in June, October, and March. In 2023 she had just 1 menstrual period in June. She does feel warm at times, but does not have very serious hot flashes. She seems less fatigued this year, but occasionally does feel like she is not as mentally sharp. She wonders if this is related to a menopausal change. She is otherwise without gynecologic complaints. Review of Systems The patient has gained 12 pounds over the last year. She denies respiratory, cardiac, or G.I. problems. 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 She has had 3 vaginal deliveries. 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 - Past Family History Father Family Medical History: Cancer Additional Family Medical History / Comment(s): Prostate and renal cancer. MDS. Medications and Allergies Home Medications Medication Instructions Recorded Confirmed Type Multivitamin [Multivitamins Adult 1 each PO HS 12/06/18 04/07/23 History Gummies] Allergies Allergy/AdvReac Type Severity Reaction Status Date / Time No Known Allergies Allergy Verified 04/11/24 08:02 Exam Vital Signs Temp Pulse Resp BP Pulse Ox 04/11/24 08:03 98.3 F 83 16 136/86 99 Intake and Output 04/10/24 04/11/24 04/11/24 22:59 06:59 14:59 Other: Weight 72.575 kg Height 5 feet 2 inches, weight 160 pounds, BMI 29.3. This is a well-developed well-nourished white female who is alert and oriented times 3 in no acute distress. HEENT: Within normal limits. NECK: Supple without mass or thyromegaly. CHEST AND LUNGS: Clear to auscultation. HEART: Regular rate and rhythm. BREASTS: Are without mass or discharge. AXILLARY EXAM: Negative for adenopathy. BACK: Negative for CVA tenderness. ABDOMEN: Soft, nontender, without palpable masses. PELVIC EXAM: Normal external genitalia. Cervix and vagina appear normal. There is no unusual discharge. There is no evidence of prolapse. The uterus is midposition, multiparous, nongravid size and nontender. There are no palpable adnexal masses or tenderness. RECTAL EXAM: negative for mass or tenderness and is negative for occult blood. EXTREMITIES: Nontender. IMPRESSION: 1. 48-year-old perimenopausal female whose is status post vasectomy, with normal gynecologic exam. 2. Oligomenorrhea menorrhea with intermittent mild vasomotor symptoms consistent with the perimenopause. PLAN: 1. Pap smear was deferred since she had a negative Pap smear cotest on 04/07/2023. 2. Self breast awareness was discussed with the patient. We have also discussed symptoms associated with inflammatory breast cancer. 3. Screening mammogram will be done today. 4. Osteoporosis prevention was discussed. I have stressed the importance of adequate calcium, vitamin D and regular exercise. Recommended amounts of calcium and vitamin D were also discussed. 5. She will continue to keep a menstrual calendar and call if menstrual problems. 6. Weight control was discussed. I have stressed the importance of good nutrition and regular exercise. 7. She was advised to return in one year for her annual well woman exam.
--- NOTE | 2024-04-13 09:53 | MM ---
Reason for Exam: Screening (asymptomatic). Last screening mammogram was performed 12 month(s) ago. Patient History: Menarche at age 12. First Full-Term at age 22. Perimenopausal. Patient has history of breast feeding. Risk Values: Lucinda 5 year model risk: 0.8%. NCI Lifetime model risk: 8.2%. Prior Study Comparison: 03/11/2021 Bilateral Screening Mammogram, [facility]. 03/25/2022 Bilateral MG 3D screening mammo w/cad, [facility]. 04/07/2023 Bilateral MG 3D screening mammo w/cad, [facility]. Tissue Density: There are scattered areas of fibroglandular density. Findings: Analyzed By CAD. There is no suspicious group of microcalcifications or new suspicious mass in either breast. Overall Assessment: Benign, BI-RAD 2 Management: Screening Mammogram of both breasts in 1 year. . Patient should continue monthly self-breast exams. A clinical breast exam by your physician is recommended on an annual basis. This exam should not preclude additional follow-up of suspicious palpable abnormalities. Note on Lucinda scores and lifetime risk: 1. A Lucinda score greater than 3% is considered moderate risk. If this is the case, consider specialist referral to assess eligibility for a risk reducing agent. 2. If overall lifetime risk for the development of breast cancer is 20% or higher, the patient may qualify for future screening with alternating mammogram and breast MRI. [facility], , 04/13/2024 9:50 AM. Electronically signed and approved by: Doug Alanis M.D. Radiolog[facility]
== END ==
LOC: WWCWWP 07:52
PROVIDERS: ATTEND Obstetrics & Gynecology
DX: Z12.31 Encounter for screening mammogram for malignant neoplasm of breast (principal); N91.5 Oligomenorrhea, unspecified; Z78.0 Asymptomatic menopausal state
CPT/HCPCS: 77063; 77067